=== PATIENT | female | born 1950 | race African-American/Black ===

== ENCOUNTER 2021-08-26 19:21 | Emergency (ER) | payer OTHER ==
[~2021-08-26] VITALS: Ht 152.4 cm; Wt 86.2 kg
[2021-08-26] MEDS ORDERED: SIMVASTATIN10 MG PO (19:51)
[2021-08-26] MEDS ORDERED: CARVEDILOL6.25 MG (19:51)
[2021-08-26] MEDS ORDERED: IRBESARTAN150 MG PO (19:51)
[2021-08-27] MEDS ORDERED: CIPRO500 MG PO (07:17)
[2021-08-27] MEDS ORDERED: PHENERGAN25 MG PO (07:17)
[2021-08-27] MEDS ORDERED: LEVSIN/SL0.125 MG SL (07:17)
[2021-08-27] MEDS ORDERED: PEPCID40 MG PO (07:17)
[2021-08-27] MEDS ORDERED: INTESTINEX680 M1 PO (07:17)
== END 2021-08-27 08:02 | disposition home or self-care (01) ==
LOC: ER 19:21
DX: S20.212A Contusion of left front wall of thorax, initial encounter (principal); N39.0 Urinary tract infection, site not specified; R10.31 Right lower quadrant pain; X58.XXXA Exposure to other specified factors, initial encounter; Y93.89 Activity, other specified; Y92.098 Other place in other non-institutional residence as the place of occurrence of the external cause; Y99.8 Other external cause status; Z03.818 Encounter for observation for suspected exposure to other biological agents ruled out

== ENCOUNTER 2022-01-22 20:42 | Emergency (ER) | payer OTHER ==
[~2022-01-22] VITALS: Ht 170.2 cm; Wt 87.1 kg
[~2022-01-22 20:42] MED LIST: CARVEDILOL6.25 MG; CIPRO500 MG PO; INTESTINEX680 M1 PO; IRBESARTAN150 MG PO; LEVSIN/SL0.125 MG SL; PEPCID40 MG PO; PHENERGAN25 MG PO; SIMVASTATIN10 MG PO
[2022-01-23] MEDS ORDERED: BENZONATATE200 M1 PO (03:41)
[2022-01-23] MEDS ORDERED: ZYNCOF 20-400120 ML PO (03:41)
== END 2022-01-23 03:47 ==
LOC: ER 20:42
DX: J45.909 Unspecified asthma, uncomplicated (principal); R05.9 Cough, unspecified; Z88.5 Allergy status to narcotic agent; Z20.822 Contact with and (suspected) exposure to COVID-19

== ENCOUNTER 2022-05-15 11:56 | Emergency (ER) | payer OTHER | END 2022-05-15 19:36 | disposition home or self-care (01) | LOC: ER 11:56 | DX: U07.1 COVID-19 (principal); E11.9 Type 2 diabetes mellitus without complications; I10 Essential (primary) hypertension; Z88.8 Allergy status to other drugs, medicaments and biological substances ==

== ENCOUNTER 2022-05-18 14:30 | Outpatient (CLI) | payer OTHER | END 2022-05-18 16:00 | disposition home or self-care (01) | LOC: ASH CLINIC 14:30 | DX: U07.1 COVID-19 (principal) ==

== ENCOUNTER 2022-09-09 12:09 | Emergency (ER) | payer OTHER ==
[~2022-09-09] VITALS: Ht 170.2 cm; Wt 89.8 kg
[~2022-09-09 12:09] MED LIST changes: +BENZONATATE200 M1 PO; +IPRAT-ALBUT 0.5-3 ML IH; +LEVALBUTER1.25 MG/3 IH; +TUSICOF LIQUID120 ML PO; +ZYNCOF 20-400120 ML PO
[2022-09-09] MEDS ORDERED: ORPHENADRINE C100 MG PO (16:22)
[2022-09-09] MEDS ORDERED: ULTRAM50 MG PO (16:22)
[2022-09-09] MEDS ORDERED: TORADOL60 MG IM (16:22)
== END 2022-09-09 16:57 ==
LOC: ER 12:09
DX: M54.31 Sciatica, right side (principal); Z88.8 Allergy status to other drugs, medicaments and biological substances

== ENCOUNTER 2022-12-01 20:21 | Emergency (ER) | payer OTHER ==
[~2022-12-01] VITALS: Ht 170.2 cm; Wt 87.1 kg
[~2022-12-01 20:21] MED LIST changes: +ORPHENADRINE C100 MG PO; +TORADOL60 MG IM; +ULTRAM50 MG PO
[2022-12-02] MEDS ORDERED: PEPCID40 MG PO (03:01)
[2022-12-02] MEDS ORDERED: INTESTINEX680 M1 PO (03:02)
[2022-12-02] MEDS ORDERED: LEVSIN/SL0.125 MG PO (03:02)
[2022-12-02] MEDS ORDERED: ONDANSETRON ODT4 MG PO (03:02)
== END 2022-12-02 03:14 ==
LOC: ER 20:21
DX: R11.10 Vomiting, unspecified (principal); R19.7 Diarrhea, unspecified; Z88.6 Allergy status to analgesic agent; E11.9 Type 2 diabetes mellitus without complications; I10 Essential (primary) hypertension; J45.909 Unspecified asthma, uncomplicated; Z96.698 Presence of other orthopedic joint implants

== ENCOUNTER 2023-03-08 12:13 | Emergency (ER) | payer OTHER ==
[~2023-03-08] VITALS: Ht 170.2 cm; Wt 86.2 kg
[~2023-03-08 12:13] MED LIST changes: +LEVSIN/SL0.125 MG PO; +ONDANSETRON ODT4 MG PO
[2023-03-08] MEDS ORDERED: METFORMIN HCL500 M2 (13:06)
== END 2023-03-08 16:36 | disposition home or self-care (01) ==
LOC: ER 12:13
DX: J45.909 Unspecified asthma, uncomplicated (principal); R06.02 Shortness of breath; R05.9 Cough, unspecified; Z20.822 Contact with and (suspected) exposure to COVID-19; I10 Essential (primary) hypertension; E11.9 Type 2 diabetes mellitus without complications; Z79.84 Long term (current) use of oral hypoglycemic drugs; Z88.5 Allergy status to narcotic agent

== ENCOUNTER 2023-10-20 20:01 | Emergency (ER) | payer OTHER ==
[~2023-10-20] VITALS: Ht 170.2 cm; Wt 86.6 kg
[~2023-10-20 20:01] MED LIST changes: +METFORMIN HCL500 M2
[2023-10-20] MEDS ORDERED: SPIRIVA RESPIMAT4 G1 IH (20:19)
[2023-10-20 22:10] LABS: HEMATOCRIT 36.2 % (36.0-45.00); MEAN CORPUSCULAR HEMOGLOBIN 28.5 pg (27.00-32.0); MEAN CORPUSCULAR HGB CONC 33.2 g/dl (32.0-36.0); PLATELET COUNT 161 K/uL (150-450); RED BLOOD COUNT 4.22 M/uL (4.00-6.00); RED CELL DISTRIBUTION WIDTH 14.3 % (11.5-14.5)
== END 2023-10-21 01:05 | disposition home or self-care (01) ==
LOC: ER 20:02
PROVIDERS: Emergency Medicine
DX: U07.1 COVID-19 (principal)

== ENCOUNTER 2023-10-29 18:28 | Emergency (ER) | payer OTHER ==
[~2023-10-29] VITALS: Ht 170.2 cm; Wt 86.2 kg
[~2023-10-29 18:28] MED LIST changes: +SPIRIVA RESPIMAT4 G1 IH
== END 2023-10-29 21:08 | disposition home or self-care (01) ==
LOC: ER 18:30
DX: M54.31 Sciatica, right side (principal); Z88.6 Allergy status to analgesic agent
CPT/HCPCS: 96372; 99282; J1885; J2360